=== PATIENT | male | born 1980 | race Caucasian/White ===

== ENCOUNTER 2018-12-07 02:10 | Emergency (ER) | payer SELFPAY ==
[2018-12-07 02:19] VITALS: TEMP 97.8
[2018-12-07] MEDS ORDERED: Sodium Chloride 0.9% 1,000 ML IV ONE ×3 (02:24→04:35)
--- NOTE | 2018-12-07 02:33 | C.PDOC ---
History Of Present Illness 38 year old male presents to the ED c/o vomiting that started today. Patient reports drinking today [employer]. Patient denies SI/HI, hallucinations, other medical complaints at this time. Chief Complaint (Nursing): GI Problem History Per: Patient History/Exam Limitations: intoxication Onset/Duration Of Symptoms: Hrs Current Symptoms Are (Timing): Still Present Recent travel outside of the [place]: No Additional History Per: Patient Past Medical History Reviewed: Historical Data, Nursing Documentation, Vital Signs Vital Signs: Last Vital Signs Temp 97.8 F 12/07/18 02:16 Pulse 110 H 12/07/18 02:16 Resp 20 12/07/18 02:16 BP 112/65 12/07/18 02:16 Pulse Ox 94 L 12/07/18 02:16 Primary Care Provider: FAMILY PROVIDER,NO - Medical History PMH: No Chronic Diseases Surgical History: No Surg Hx Family History: States: Unknown Family Hx - Social History Hx Tobacco Use: Yes Hx Alcohol Use: Yes Hx Substance Use: No - Immunization History Hx Tetanus Toxoid Vaccination: No Hx Influenza Vaccination: No Hx Pneumococcal Vaccination: No Review Of Systems Constitutional: Negative for: Fever, Chills Cardiovascular: Negative for: Chest Pain Respiratory: Negative for: Shortness of Breath Gastrointestinal: Positive for: Vomiting. Negative for: Nausea, Abdominal Pain Skin: Negative for: Rash Neurological: Negative for: Weakness, Numbness Psych: Negative for: Depression, Suicidal ideation Physical Exam - Physical Exam Appears: Non-toxic, No Acute Distress Skin: Normal Color, Warm, Dry Head: Atraumatic, Normacephalic Eye(s): bilateral: Normal Inspection Neck: Normal ROM, Supple Chest: Symmetrical Cardiovascular: Rhythm Regular Respiratory: Normal Breath Sounds, No Rales, No Rhonchi, No Wheezing Gastrointestinal/Abdominal: Soft, No Tenderness, No Guarding, No Rebound Extremity: Normal ROM, No Tenderness, No Swelling Neurological/Psych: Oriented x3, Normal Speech, Normal Cognition, Other (tremors) Gait: Steady ED Course And Treatment - Laboratory Results Result Diagrams: 12/07/18 02:55 12/07/18 02:55 O2 Sat by Pulse Oximetry: 94 Medical Decision Making Medical Decision Making: Plan: * Labs * UA * IV fluids * Zofran 4 mg IVP Disposition Counseled Patient/Family Regarding: Diagnosis - Disposition Referrals: [facility] [Outside] Disposition: HOME/ ROUTINE Disposition Time: 04:46 Condition: STABLE Instructions: Alcohol (Ethyl), Gastritis (DC) Forms: [facility] (Tongan) - POA Present On Arrival: None - Clinical Impression Clinical Impression: Gastritis, Alcohol ingestion - Scribe Statement The provider has reviewed the documentation as recorded by the Scribe Oscar Villanueva All medical record entries made by the Scribe were at my direction and personally dictated by me. I have reviewed the chart and agree that the record a ccurately reflects my personal performance of the history, physical exam, medical decision making, and the department course for this patient. I have also personally directed, reviewed, and agree with the discharge instructions and disposition.
[2018-12-07 02:57] LABS: BASO # 0.1 K/uL (0.0-0.2); BASO % 0.5 % (0.0-2.0); EOS # 0.2 K/uL (0.0-0.7); EOS % 1.7 % (0.0-4.0); HEMOGLOBIN 17.1 g/dL (12.0-18.0); LYMPH # 2.4 K/uL (1.0-4.3); MEAN CELL VOLUME 96.1 fL (80.0-94.0); MEAN CORPUSCULAR HEMOGLOBIN 33.6 pg (27.0-31.0); MEAN PLATELET VOLUME 10.2 fL (7.2-11.7); MONO # 0.7 K/uL (0.0-0.8); MONO % 6.1 % (0.0-10.0); NEUT # 7.7 K/uL (1.8-7.0); NEUT % 69.7 % (50.0-75.0); NRBC % 0.1 % (0.0-2.0); RBC 5.08 Mil/uL (4.40-5.90); RED CELL DISTRIBUTION WIDTH 12.8 % (11.5-14.5)
[2018-12-07 03:11] LABS: ALB/GLOB RATIO 1.5 (1.0-2.1); ALBUMIN 4.7 g/dL (3.5-5.0); ALT/SGPT 18 U/L (21-72); AST/SGOT 20 U/L (17-59); BLOOD UREA NITROGEN 10 mg/dL (9-20); CALCIUM 9.4 mg/dl (8.6-10.4); GFR NON-AFRICAN AMERICAN > 60; LIPASE 73 U/L (23-300)
[2018-12-07 04:20] VITALS: BP 118/72; PULSE 100; RESP 18
[2018-12-07 04:31] LABS: BARBITURATES, UR NEGATIVE (NEGATIVE); BENZODIAZEPINES, UR NEGATIVE (NEGATIVE); OPIATES, UR NEGATIVE (NEGATIVE); PHENCYCLIDINE, UR NEGATIVE (NEGATIVE)
[2018-12-07 04:32] LABS: SQUAMOUS EPITHIAL < 1 /hpf (0-5); URINE BILIRUBIN NEGATIVE (NEGATIVE); URINE BLOOD NEGATIVE (NEGATIVE); URINE CLARITY Clear (Clear); URINE COLOR Yellow (YELLOW); URINE GLUCOSE (UA) NORMAL (Normal); URINE LEUKOCYTE ESTERASE NEG Leu/uL (Negative); URINE PROTEIN NEGATIVE (NEGATIVE); URINE UROBILINOGEN NORMAL mg/dL (0.2-1.0)
[2018-12-07 04:48] VITALS: O2SAT 94
== END 2018-12-07 05:26 | disposition home or self-care (01) ==
LOC: C.ER 02:10
DX: K29.70 Gastritis, unspecified, without bleeding (principal); F10.129 Alcohol abuse with intoxication, unspecified; Y90.2 Blood alcohol level of 40-59 mg/100 ml
CPT/HCPCS: 80053; 81001; 82948; 83690; 83735; 84100; 85025; 96374; 96375; 99284; G0480; J2405; J7030